=== PATIENT | male | born 1970 | race Caucasian/White ===

== ENCOUNTER 2016-05-09 09:51 | Inpatient (IN) | payer BC ==
[~2016-05-09] VITALS: Ht 176.5 cm; Wt 85.2 kg
[2016-05-09] VITALS (8 sets, daily range): BP systolic 100–129; BP diastolic 44–72
[~2016-05-09 09:51] MED LIST: ACTOS30 MG PO; ALTACE2.5 MG PO; CELEBREX200 MG PO; FENOFIBRATE160 MG PO; GLYBURID-METFO1 EAC3 PO; LANTUS 3 M100 UNITS1 SC; Melatonin PO; POTASSIUM CITRAT MC; RAMIPRIL2.5 MG PO; Urocit-K PO; Vicodin,Norco 5/325 PO; XYZAL5 MG PO; ZOCOR20 MG PO
[2016-05-09 10:56] LABS: BASOPHIL COUNT 0.1 K/uL (0-0.1); EOSINOPHIL (%) 0.1 % (0-5); HEMATOCRIT 48.5 % (38.0-50.0); IMMATURE GRANULOCYTE (%) 1.3 % (0.0-0.7); IMMATURE GRANULOCYTE COUNT 2.1 K/uL; LYMPHOCYTE COUNT 0.6 K/uL (1.0-2.8); MCH 27.8 PG (29.0-34.0); MCV 84.2 FL (86-99); MEAN PLAT.VOLUME 10.2 uM^3 (9.0-12.4); MONOCYTE (%) 5.1 % (3-12); MONOCYTE COUNT 0.8 K/uL (0-0.8); NEUTROPHIL COUNT 14.1 K/uL (1.8-6.4); PLATELET COUNT 268 K/uL (156-360); RBC DIS.WIDTH-CV 13.5 % (11.8-14.6); RBC DIS.WIDTH-SD 41.7 % (39-53); RED BLOOD COUNT 5.76 M/uL (4.00-5.50); WHITE BLOOD COUNT 15.8 K/uL (4.1-10.2)
[2016-05-09 11:07] LABS: D-DIMER ELISA 0.94 mg/L FEU (< 0.57); PROTHROMBIN TIME 10.6 (9.2-11.2); PTT 35.1 (25-32)
[2016-05-09 11:11] LABS: CHLORIDE 106 mEq/L (99-109); POTASSIUM 4.8 mEq/L (3.7-5.4); SODIUM 136 mEq/L (136-147)
[2016-05-09 11:14] LABS: ANION GAP 25 MEQ/L (2-14); GLUCOSE 198 mg/dL (70-99)
[2016-05-09 11:15] LABS: TOTAL BILIRUBIN 0.3 mg/dL (0.0-1.0)
[2016-05-09 11:16] LABS: ALKALINE PHOSPHATASE 124 IU/L (3-129)
[2016-05-09 11:18] LABS: UREA NITROGEN (BUN) 14 mg/dL (9-23)
[2016-05-09 11:23] LABS: GFR ESTIMATE (CALCULATED) 53 mL/min/; TROP-I INTERPRETATION NEGATIVE; TROPONIN-I < 0.01 ng/mL (0.0-0.30)
[2016-05-09 12:28] LABS: ADD MIUA? YES; BILIRUBIN NEGATIVE; BLOOD SMALL; COLOR YELLOW ((YELLOW)); GLUCOSE (STRIP) >=1000; KETONES >=80; LEUKOCYTES NEGATIVE; NITRITE NEGATIVE; PH, URINE 5.5 (5-8); PROTEIN (STRIP) 100; UROBILINOGEN 0.2 MG/DL (0.2-1.0)
[2016-05-09 12:49] LABS: BACTERIA RARE /HPF; EPITHELIAL CELLS NONE SEEN /HPF; MUCUS NONE SEEN /LPF; RED BLOOD CELLS RARE /HPF (0-5); UCUL ADDED? NO; WHITE BLOOD CELLS NONE SEEN /HPF (0-5)
[2016-05-09 12:50] LABS: CASTS NONE SEEN /LPF; CRYSTALS NONE SEEN
[2016-05-09] MEDS ORDERED: LOFIBRA,TRIGLI160 MG PO (14:47)
[2016-05-09] MEDS ORDERED: METFORMIN HCL500 MG PO ×2 (14:49)
[2016-05-09] MEDS ORDERED: CIPRO500 MG PO (14:49)
[2016-05-09] MEDS ORDERED: ONE DAILY TABL1 EACH PO (14:50)
[2016-05-09] MEDS ORDERED: HYDROCODON-ACE1 EAC7 PO (14:50)
[2016-05-09] MEDS ORDERED: JANUVIA100 MG PO (14:50)
[2016-05-09] MEDS ORDERED: POTASSIUM CHLO10 ME3 PO (14:51)
[2016-05-09] MEDS ORDERED: MELATIN3 MG PO (14:51)
[2016-05-09] MEDS ORDERED: INVOKANA300 MG PO (14:52)
[2016-05-09 14:56] LABS: CARBOXY HGB 0.2 % (0-5); METHEMOGLOBIN 0.7 % (0-1.5); PCO2 < 19 mm Hg (35-45); PO2 110 mm Hg (80-100)
[2016-05-09 14:59] LABS: COMMENTS - BLOOD GASES +C; FI02 21 %; SITE LR +A; TOTAL RESP RATE 20 resp/min
[2016-05-09 15:00] LABS: pH 7.11 (7.35-7.45)
[2016-05-09 15:39] LABS: POINT-OF-CARE METER ID UU14100415
[2016-05-09 16:29] LABS: CARBON DIOXIDE (BICARBONATE) 8.7 MEQ/L (20-31)
[2016-05-09 16:36] LABS: POINT-OF-CARE METER ID UU13113702
[2016-05-09 17:40] LABS: POINT-OF-CARE METER ID UU13113748
[2016-05-09 18:36] LABS: POINT-OF-CARE METER ID UU13113748
[2016-05-09 18:52] LABS: ANION GAP 24 MEQ/L (2-14); CHLORIDE 104 MEQ/L (99-109); GFR ESTIMATE (CALCULATED) > 59 mL/min/; GLUCOSE 137 mg/dL (70-99); POTASSIUM 4.2 MEQ/L (3.7-5.4); SAMPLE HEMOLYSIS CHECK 0; SAMPLE ICTERIC CHECK 0; SAMPLE LIPEMIA CHECK 0; SODIUM 137 MEQ/L (136-147); UREA NITROGEN (BUN) 13 mg/dL (9-23)
[2016-05-09 19:07] LABS: METH RESISTANT S AUREUS PCR NEGATIVE (NEGATIVE)
[2016-05-09 19:13] LABS: PROBE CHECK PASS; SPECIMEN PROCESSING CONTROL PASS
[2016-05-09 19:57] LABS: POINT-OF-CARE METER ID UU13113748
[2016-05-09 20:49] LABS: ANION GAP 24 MEQ/L (2-14); CHLORIDE 105 MEQ/L (99-109); GFR ESTIMATE (CALCULATED) > 59 mL/min/; GLUCOSE 152 mg/dL (70-99); SAMPLE HEMOLYSIS CHECK 2; SAMPLE ICTERIC CHECK 0; SAMPLE LIPEMIA CHECK 0; SODIUM 137 MEQ/L (136-147); UREA NITROGEN (BUN) 10 mg/dL (9-23)
[2016-05-09 21:01] LABS: POINT-OF-CARE METER ID UU13113748
[2016-05-09 21:44] LABS: POINT-OF-CARE METER ID UU13113748
[2016-05-09 22:34] LABS: ANION GAP 19 MEQ/L (2-14); CHLORIDE 105 MEQ/L (99-109); GFR ESTIMATE (CALCULATED) > 59 mL/min/; GLUCOSE 125 mg/dL (70-99); POTASSIUM 3.3 MEQ/L (3.7-5.4); SAMPLE HEMOLYSIS CHECK 0; SAMPLE ICTERIC CHECK 0; SAMPLE LIPEMIA CHECK 0; SODIUM 136 MEQ/L (136-147); UREA NITROGEN (BUN) 9 mg/dL (9-23)
[2016-05-09 22:50] LABS: POINT-OF-CARE METER ID UU13113748
[2016-05-10] VITALS (23 sets, daily range): BP systolic 103–132; BP diastolic 44–68
[2016-05-10 00:04] LABS: POINT-OF-CARE METER ID UU13113748
[2016-05-10 00:55] LABS: POINT-OF-CARE METER ID UU13113748
[2016-05-10 01:16] LABS: CHLORIDE 108 mEq/L (99-109); POTASSIUM 3.5 mEq/L (3.7-5.4); SODIUM 138 mEq/L (136-147)
[2016-05-10 01:18] LABS: GLUCOSE 155 mg/dL (70-99)
[2016-05-10 01:19] LABS: ANION GAP 18 MEQ/L (2-14)
[2016-05-10 01:22] LABS: UREA NITROGEN (BUN) 9 mg/dL (9-23)
[2016-05-10 01:23] LABS: GFR ESTIMATE (CALCULATED) > 59 mL/min/
[2016-05-10 01:38] LABS: POINT-OF-CARE METER ID UU13113803
[2016-05-10 02:29] LABS: POINT-OF-CARE METER ID UU13113803
[2016-05-10 03:27] LABS: POINT-OF-CARE METER ID UU13113803
[2016-05-10 04:12] LABS: UR CREATININE CONCENTRATION 28.9 MG/DL
[2016-05-10 04:31] LABS: POINT-OF-CARE METER ID UU13113803
[2016-05-10 05:49] LABS: POINT-OF-CARE METER ID UU13113803
[2016-05-10 05:59] LABS: ANION GAP 18 MEQ/L (2-14); CHLORIDE 105 MEQ/L (99-109); GLUCOSE 150 mg/dL (70-99); POTASSIUM 3.6 MEQ/L (3.7-5.4); SAMPLE HEMOLYSIS CHECK 0; SAMPLE ICTERIC CHECK 0; SAMPLE LIPEMIA CHECK 0; SODIUM 138 MEQ/L (136-147); UREA NITROGEN (BUN) 9 mg/dL (9-23)
[2016-05-10 06:03] LABS: GFR ESTIMATE (CALCULATED) > 59 mL/min/
[2016-05-10 07:01] LABS: POINT-OF-CARE METER ID UU13113803
[2016-05-10 07:38] LABS: POINT-OF-CARE METER ID UU13113803
[2016-05-10 08:52] LABS: POINT-OF-CARE METER ID UU13113803
[2016-05-10 09:07] LABS: ANION GAP 23 MEQ/L (2-14); CHLORIDE 105 MEQ/L (99-109); GFR ESTIMATE (CALCULATED) > 59 mL/min/; GLUCOSE 157 mg/dL (70-99); POTASSIUM 3.4 MEQ/L (3.7-5.4); SAMPLE HEMOLYSIS CHECK 0; SAMPLE ICTERIC CHECK 0; SAMPLE LIPEMIA CHECK 0; SODIUM 140 MEQ/L (136-147); UREA NITROGEN (BUN) 7 mg/dL (9-23)
[2016-05-10 10:01] LABS: POINT-OF-CARE METER ID UU13113803
[2016-05-10 11:55] LABS: POINT-OF-CARE METER ID UU13113748
[2016-05-10 12:16] LABS: CARBON DIOXIDE (BICARBONATE) 22.8 MEQ/L (20-31)
[2016-05-10 12:21] LABS: CHLORIDE 110 mEq/L (99-109); POTASSIUM 3.4 mEq/L (3.7-5.4); SODIUM 143 mEq/L (136-147)
[2016-05-10 12:23] LABS: GLUCOSE 170 mg/dL (70-99)
[2016-05-10 12:24] LABS: ANION GAP 14 MEQ/L (2-14)
[2016-05-10 12:30] LABS: GFR ESTIMATE (CALCULATED) > 59 mL/min/; UREA NITROGEN (BUN) 6 mg/dL (9-23)
[2016-05-10 12:55] LABS: POINT-OF-CARE METER ID UU13113748
[2016-05-10 13:55] LABS: POINT-OF-CARE METER ID UU13113748
[2016-05-10 14:53] LABS: POINT-OF-CARE METER ID UU13113748
[2016-05-10 15:46] LABS: POINT-OF-CARE METER ID UU13113748
[2016-05-10 16:24] LABS: ANION GAP 12 MEQ/L (2-14); CHLORIDE 110 MEQ/L (99-109); GFR ESTIMATE (CALCULATED) > 59 mL/min/; GLUCOSE 130 mg/dL (70-99); POTASSIUM 3.6 MEQ/L (3.7-5.4); SAMPLE HEMOLYSIS CHECK 0; SAMPLE ICTERIC CHECK 0; SAMPLE LIPEMIA CHECK 0; SODIUM 143 MEQ/L (136-147); UREA NITROGEN (BUN) 7 mg/dL (9-23)
[2016-05-10 16:56] LABS: POINT-OF-CARE METER ID UU13113748
[2016-05-10 21:17] LABS: POINT-OF-CARE METER ID UU13113748
[2016-05-10 21:22] LABS: ANION GAP 12 MEQ/L (2-14); CHLORIDE 107 MEQ/L (99-109); GFR ESTIMATE (CALCULATED) > 59 mL/min/; POTASSIUM 3.4 MEQ/L (3.7-5.4); SAMPLE HEMOLYSIS CHECK 0; SAMPLE ICTERIC CHECK 0; SAMPLE LIPEMIA CHECK 0; SODIUM 140 MEQ/L (136-147); UREA NITROGEN (BUN) 8 mg/dL (9-23)
[2016-05-10 21:23] LABS: GLUCOSE 220 mg/dL (70-99)
[2016-05-10 22:31] LABS: ANION GAP 13 MEQ/L (2-14); CHLORIDE 108 MEQ/L (99-109); GFR ESTIMATE (CALCULATED) > 59 mL/min/; GLUCOSE 160 mg/dL (70-99); POTASSIUM 3.4 MEQ/L (3.7-5.4); SAMPLE HEMOLYSIS CHECK 0; SAMPLE ICTERIC CHECK 0; SAMPLE LIPEMIA CHECK 0; SODIUM 141 MEQ/L (136-147); UREA NITROGEN (BUN) 7 mg/dL (9-23)
[2016-05-10 22:55] LABS: EOSINOPHIL (%) 1.1 % (0-5); EOSINOPHIL COUNT 0.1 K/uL (0-0.3); HEMATOCRIT 33.3 % (38.0-50.0); IMMATURE GRANULOCYTE (%) 1.1 % (0.0-0.7); IMMATURE GRANULOCYTE COUNT 0.1 K/uL; LYMPHOCYTE COUNT 0.9 K/uL (1.0-2.8); MCH 27.9 PG (29.0-34.0); MCHC 34.2 G/DL (30.0-36.0); MCV 81.6 FL (86-99); MEAN PLAT.VOLUME 10.1 uM^3 (9.0-12.4); MONOCYTE (%) 12.7 % (3-12); MONOCYTE COUNT 0.8 K/uL (0-0.8); NEUTROPHIL (%) 70.7 % (45-76); NEUTROPHIL COUNT 4.7 K/uL (1.8-6.4); PLATELET COUNT 190 K/uL (156-360); RBC DIS.WIDTH-CV 13.4 % (11.8-14.6); RBC DIS.WIDTH-SD 40.1 % (39-53)
[2016-05-10 23:04] LABS: RED BLOOD COUNT 4.08 M/uL (4.00-5.50); WHITE BLOOD COUNT 6.6 K/uL (4.1-10.2)
[2016-05-10 23:32] LABS: MAGNESIUM 1.8 mg/dl (1.3-2.7)
[2016-05-11] VITALS (11 sets, daily range): BP systolic 102–142; BP diastolic 51–80
[2016-05-11 00:49] LABS: CHLORIDE 109 mEq/L (99-109); POTASSIUM 3.4 mEq/L (3.7-5.4); SODIUM 143 mEq/L (136-147)
[2016-05-11 00:52] LABS: ANION GAP 13 MEQ/L (2-14)
[2016-05-11 00:54] LABS: GFR ESTIMATE (CALCULATED) > 59 mL/min/
[2016-05-11 00:55] LABS: UREA NITROGEN (BUN) 6 mg/dL (9-23)
[2016-05-11 00:58] LABS: GLUCOSE 111 mg/dL (70-99)
[2016-05-11 03:28] LABS: POINT-OF-CARE METER ID UU13113748
[2016-05-11 04:43] LABS: CHLORIDE 110 mEq/L (99-109); SODIUM 143 mEq/L (136-147)
[2016-05-11 04:45] LABS: GLUCOSE 132 mg/dL (70-99)
[2016-05-11 04:47] LABS: ANION GAP 13 MEQ/L (2-14)
[2016-05-11 04:49] LABS: GFR ESTIMATE (CALCULATED) > 59 mL/min/
[2016-05-11 04:50] LABS: UREA NITROGEN (BUN) 5 mg/dL (9-23)
[2016-05-11 09:03] LABS: POINT-OF-CARE METER ID UU13113748
[2016-05-11 09:22] LABS: ANION GAP 17 MEQ/L (2-14); CHLORIDE 106 MEQ/L (99-109); GFR ESTIMATE (CALCULATED) > 59 mL/min/; GLUCOSE 128 mg/dL (70-99); POTASSIUM 3.9 MEQ/L (3.7-5.4); SAMPLE HEMOLYSIS CHECK 0; SAMPLE ICTERIC CHECK 0; SAMPLE LIPEMIA CHECK 0; SODIUM 140 MEQ/L (136-147); UREA NITROGEN (BUN) 5 mg/dL (9-23)
[2016-05-11 12:42] LABS: ANION GAP 15 MEQ/L (2-14); CHLORIDE 106 MEQ/L (99-109); GFR ESTIMATE (CALCULATED) > 59 mL/min/; GLUCOSE 168 mg/dL (70-99); POTASSIUM 3.9 MEQ/L (3.7-5.4); SAMPLE HEMOLYSIS CHECK 0; SAMPLE ICTERIC CHECK 0; SAMPLE LIPEMIA CHECK 0; SODIUM 142 MEQ/L (136-147); UREA NITROGEN (BUN) 6 mg/dL (9-23)
[2016-05-11 12:56] LABS: POINT-OF-CARE METER ID UU13113748
[2016-05-11 16:20] LABS: ANION GAP 14 MEQ/L (2-14); CHLORIDE 104 MEQ/L (99-109); GFR ESTIMATE (CALCULATED) > 59 mL/min/; GLUCOSE 183 mg/dL (70-99); POTASSIUM 3.8 MEQ/L (3.7-5.4); SAMPLE HEMOLYSIS CHECK 0; SAMPLE ICTERIC CHECK 0; SAMPLE LIPEMIA CHECK 0; SODIUM 139 MEQ/L (136-147); UREA NITROGEN (BUN) 7 mg/dL (9-23)
[2016-05-11 17:51] LABS: POINT-OF-CARE METER ID UU13113748
[2016-05-11 21:51] LABS: POINT-OF-CARE METER ID UU13113803
[2016-05-12] VITALS: BP 122/61
[2016-05-12 02:00] VITALS: BP 108/55
[2016-05-12 04:00] VITALS: BP 134/77
[2016-05-12 04:20] LABS: POINT-OF-CARE METER ID UU13113748
[2016-05-12 05:32] LABS: HEMATOCRIT 35.1 % (38.0-50.0); MCH 27.3 PG (29.0-34.0); MCHC 33.3 G/DL (30.0-36.0); MEAN PLAT.VOLUME 9.6 uM^3 (9.0-12.4); PLATELET COUNT 194 K/uL (156-360); RBC DIS.WIDTH-CV 13.6 % (11.8-14.6); RBC DIS.WIDTH-SD 40.6 % (39-53); RED BLOOD COUNT 4.28 M/uL (4.00-5.50); WHITE BLOOD COUNT 5.2 K/uL (4.1-10.2)
[2016-05-12 05:43] LABS: BASOPHIL COUNT 0.1 K/uL (0-0.1); EOSINOPHIL (%) 2.9 % (0-5); EOSINOPHIL COUNT 0.2 K/uL (0-0.3); IMMATURE GRANULOCYTE (%) 3.6 % (0.0-0.7); IMMATURE GRANULOCYTE COUNT 0.2 K/uL; MONOCYTE (%) 13.6 % (3-12); MONOCYTE COUNT 0.7 K/uL (0-0.8); NEUTROPHIL (%) 60.6 % (45-76); NEUTROPHIL COUNT 3.2 K/uL (1.8-6.4)
[2016-05-12 06:00] VITALS: BP 131/76
[2016-05-12 06:12] LABS: ALKALINE PHOSPHATASE 59 IU/L (3-129); ANION GAP 14 MEQ/L (2-14); CHLORIDE 104 MEQ/L (99-109); GFR ESTIMATE (CALCULATED) > 59 mL/min/; POTASSIUM 3.7 MEQ/L (3.7-5.4); SAMPLE HEMOLYSIS CHECK 0; SAMPLE ICTERIC CHECK 0; SAMPLE LIPEMIA CHECK 0; SODIUM 141 MEQ/L (136-147); TOTAL BILIRUBIN 0.3 MG/DL (0.0-1.0); UREA NITROGEN (BUN) 7 mg/dL (9-23)
[2016-05-12 06:13] LABS: GLUCOSE 110 mg/dL (70-99)
[2016-05-12 07:01] LABS: HEMATOLOGY COMMENT 1 SMEAR COMPATIBLE; USER ID CCL
[2016-05-12 07:15] LABS: POINT-OF-CARE METER ID UU13113748
[2016-05-12 08:00] VITALS: BP 135/77
== END 2016-05-12 10:48 | disposition home or self-care (01) | DRG 638 ==
LOC: EME 09:51 → EDOF 14:45 → 4WEST 14:45 → EDOF 15:56 → 4WEST 17:13
PROVIDERS: Emergency Medicine; Health Educator; Hospitalist; Internal Medicine Critical Care Medicine; Internal Medicine Nephrology; Obstetrics & Gynecology
DX: E13.10 Other specified diabetes mellitus with ketoacidosis without coma (principal); N17.9 Acute kidney failure, unspecified; T38.3X5A Adverse effect of insulin and oral hypoglycemic [antidiabetic] drugs, initial encounter; E86.0 Dehydration; E83.39 Other disorders of phosphorus metabolism; E87.6 Hypokalemia; I10 Essential (primary) hypertension; E78.5 Hyperlipidemia, unspecified; E78.1 Pure hyperglyceridemia; G47.30 Sleep apnea, unspecified; J30.2 Other seasonal allergic rhinitis; Z98.84 Bariatric surgery status
CPT/HCPCS: 36415; 36600; 71010; 71275; 76770; 80048; 80048 91; 80053; 81003; 82009; 82010 90; 82043; 82570; 82803; 82948; 83036; 83605; 83735; 83880; 84100; 84156; 84484; 84681 90; 85025; 85379; 85610; 85730; 87641; 93005; 94760; 99202; 99281; 99285; G0103; J1650; J1815; J7030; J7040; J7050; J7070; J7120

== ENCOUNTER 2016-05-23 21:23 | Emergency (ER) | payer BC ==
[~2016-05-23] VITALS: Ht 177.8 cm; Wt 89.0 kg
[~2016-05-23 21:23] MED LIST changes: +CIPRO500 MG PO; +HYDROCODON-ACE1 EAC7 PO; +INVOKANA300 MG PO; +JANUVIA100 MG PO; +LOFIBRA,TRIGLI160 MG PO; +MELATIN3 MG PO; +METFORMIN HCL500 MG PO; +ONE DAILY TABL1 EACH PO; +POTASSIUM CHLO10 ME3 PO
[2016-05-23 21:56] LABS: HEMATOCRIT 39.7 % (38.0-50.0); MCH 27.8 PG (29.0-34.0); MCV 84.1 FL (86-99); MEAN PLAT.VOLUME 9.7 uM^3 (9.0-12.4); PLATELET COUNT 241 K/uL (156-360); RBC DIS.WIDTH-CV 13.9 % (11.8-14.6); RBC DIS.WIDTH-SD 41.9 % (39-53); RED BLOOD COUNT 4.72 M/uL (4.00-5.50); WHITE BLOOD COUNT 6.5 K/uL (4.1-10.2)
[2016-05-23 22:04] LABS: ADD MIUA? YES; BILIRUBIN NEGATIVE; BLOOD LARGE; GLUCOSE (STRIP) NEGATIVE; KETONES NEGATIVE; LEUKOCYTES NEGATIVE; NITRITE NEGATIVE; PROTEIN (STRIP) 100; SPECIFIC GRAVITY 1.019 (1.000-1.030); UROBILINOGEN 0.2 MG/DL (0.2-1.0)
[2016-05-23 22:06] LABS: CHLORIDE 105 mEq/L (99-109); POTASSIUM 4.1 mEq/L (3.7-5.4); SODIUM 141 mEq/L (136-147)
[2016-05-23 22:07] LABS: COLOR BLOODY ((YELLOW))
[2016-05-23 22:08] LABS: GLUCOSE 191 mg/dL (70-99)
[2016-05-23 22:09] LABS: ANION GAP 11 MEQ/L (2-14)
[2016-05-23 22:10] LABS: TOTAL BILIRUBIN 0.2 mg/dL (0.0-1.0)
[2016-05-23 22:11] LABS: RED BLOOD CELLS TNTC /HPF (0-5); UCUL ADDED? YES
[2016-05-23 22:12] LABS: ALKALINE PHOSPHATASE 66 IU/L (3-129); GFR ESTIMATE (CALCULATED) > 59 mL/min/
[2016-05-23 22:13] LABS: UREA NITROGEN (BUN) 16 mg/dL (9-23)
[2016-05-23] MEDS ORDERED: CIPRO500 MG PO (22:37)
[2016-05-23] MEDS ORDERED: FLOMAX0.4 MG PO (22:37)
[2016-05-23 22:47] VITALS: BP 145/86
== END 2016-05-23 22:50 | disposition home or self-care (01) ==
LOC: EME 21:23
DX: N30.01 Acute cystitis with hematuria (principal); E11.9 Type 2 diabetes mellitus without complications; Z87.440 Personal history of urinary (tract) infections; Z87.442 Personal history of urinary calculi; Z98.84 Bariatric surgery status
CPT/HCPCS: 80053; 81003; 85027; 87086; 99281; 99284

== ENCOUNTER 2017-07-27 01:09 | Emergency (ER) | payer BC ==
[~2017-07-27] VITALS: Ht 180.3 cm; Wt 105.1 kg
[~2017-07-27 01:09] MED LIST changes: +FLOMAX0.4 MG PO
[2017-07-27 01:38] LABS: HEMATOCRIT 40.7 % (38.0-50.0); HEMOGLOBIN 14.2 G/DL (12.5-16.6); MCH 29.2 PG (29.0-34.0); MCHC 34.9 G/DL (30.0-36.0); MCV 83.6 FL (86-99); PLATELET COUNT 201 K/uL (156-360); RBC DIS.WIDTH-CV 12.8 % (11.8-14.6); RBC DIS.WIDTH-SD 38.5 % (39-53); RED BLOOD COUNT 4.87 M/uL (4.00-5.50); WHITE BLOOD COUNT 6.8 K/uL (4.1-10.2)
[2017-07-27 01:54] LABS: CHLORIDE 106 mEq/L (99-109); POTASSIUM 3.9 mEq/L (3.7-5.4); SODIUM 140 mEq/L (136-147)
[2017-07-27 01:55] LABS: GLUCOSE 151 mg/dL (70-99)
[2017-07-27 01:59] LABS: CREATININE 0.8 mg/dL (0.6-1.3); GFR ESTIMATE (CALCULATED) > 59 mL/min/ (58.99-99999)
[2017-07-27 02:00] LABS: UREA NITROGEN (BUN) 11 mg/dL (9-23)
[2017-07-27 02:51] LABS: TROP-I INTERPRETATION NEGATIVE; TROPONIN-I < 0.01 ng/mL (0.0-0.30)
[2017-07-27] MEDS ORDERED: ZITHROMAX250 MG PO (04:18)
[2017-07-27 04:41] VITALS: BP 122/72
== END 2017-07-27 04:50 | disposition home or self-care (01) ==
LOC: EME 01:09
DX: R09.82 Postnasal drip (principal); E11.9 Type 2 diabetes mellitus without complications; J45.909 Unspecified asthma, uncomplicated; Z87.442 Personal history of urinary calculi
CPT/HCPCS: 70360; 71046; 80048; 84484; 85027; 93005; 99281; 99284; J1100